=== PATIENT | male | born 1945 | race Caucasian/White ===

== ENCOUNTER 2019-08-20 09:42 | Day surgery (SDC) ==
[2019-08-13 10:39] LABS: URINE SOURCE CLEAN CATCH
[2019-08-13 10:41] LABS: BASO# 0.07 X1000 (0.0-0.2); BASO% 1.1 % (0.0-0.8); EOS# 0.25 X1000 (0.0-0.7); HEMATOCRIT 49.4 % (42.0-52.0); HEMOGLOBIN 16.3 g/dL (14.0-18.0); IMM GRAN# 0.02 X1000 (0.0-0.04); IMM GRAN% 0.3 % (0.0-0.5); LYMPH# 2.13 X1000 (1.2-3.4); LYMPH% 33.7 % (20.5-51.1); MCH 30.3 PG (27-31); MCV 91.8 FL (81-99); MONO# 0.56 X1000 (0.11-0.59); MONO% 8.9 % (1.7-9.3); MPV 9.6 FL (7.4-10.4); NEUT# 3.29 X1000 (1.4-6.5); PLT 229 X1000 (130-400); RBC 5.38 XMIL (4.7-6.1); WBC 6.32 X1000 (4.8-10.8)
[2019-08-13 10:46] LABS: BILIRUBIN URINE NEGATIVE (NEGATIVE); BLOOD URINE NEGATIVE (NEGATIVE); COLOR YELLOW; GLUCOSE URINE NEGATIVE (NEGATIVE); KETONE URINE NEGATIVE (NEGATIVE); LEUKOCYTES URINE NEGATIVE (NEGATIVE); NITRITE URINE NEGATIVE (NEGATIVE); PROTEIN URINE NEGATIVE (NEGATIVE); SP GRAVITY URINE 1.024; TURBIDITY URINE CLEAR (CLEAR); UROBILINOGEN URINE NORMAL (NORMAL)
[2019-08-13 10:47] LABS: UR EPITHELIAL CELLS <10 /HPF (<10); URINE BACTERIA NEGATIVE /HPF; URINE RBC <10 /HPF (<10); URINE WBC <10 /HPF (<10)
[2019-08-13 10:50] LABS: INR 0.96; PROTIME 12.9 Seconds (11.0-16.0)
[2019-08-13 10:57] LABS: HEMOGLOBIN A1C 6.2 % (4.8-6.0)
[2019-08-13 11:17] LABS: CALCIUM 9.3 mg/dL (8.8-10.2); CREATININE 1.3 mg/dL (0.7-1.2); POTASSIUM 4.3 mmol/L (3.5-5.1)
[2019-08-20] MEDS ORDERED: COLACE ONE (10:08)
[2019-08-20] MEDS ORDERED: REGLAN ONE (10:08)
[2019-08-20] MEDS ORDERED: PEPCID ONE (10:08)
[2019-08-20] MEDS ORDERED: CELEBREX ONE (10:09)
[2019-08-20] MEDS ORDERED: LYRICA ONE (10:09)
[2019-08-20] MEDS ORDERED: KEFZOL 1 GM/D5W 2 GM/100 ML IVPB ONE (10:09)
[2019-08-20] MEDS ORDERED: LR 1,000 ML ONE (10:09)
[2019-08-20] MEDS ORDERED: VERSED ONE ×2 (11:02→11:52)
[2019-08-20] MEDS ORDERED: FENTANYL ONE (11:03)
[2019-08-20] MEDS ORDERED: DIPRIVAN 1% ONE ×2 (11:03→13:06)
[2019-08-20] MEDS ORDERED: VANCOMYCIN ONE (11:43)
[2019-08-20] MEDS ORDERED: DURAMORPH ONE (11:43)
[2019-08-20] MEDS ORDERED: TORADOL ONE (11:43)
[2019-08-20] MEDS ORDERED: MARCAINE 0.25% PF ONE (11:43)
[2019-08-20] MEDS ORDERED: EXPAREL 1.3% ONE (11:44)
[2019-08-20] MEDS ORDERED: SODIUM CHLORIDE 0.9% ONE (11:44)
[2019-08-20] MEDS: CYKLOKAPRON 1,000 MG/NS 2,000 MG/200 ML IVPB ONE ×2 (12:12→13:20)
[2019-08-20] MEDS ORDERED: OFIRMEV 1000 MG/ISOTONIC SOLN 1,000 MG/100 ML BOTTLE ONE (12:36)
[2019-08-20] MEDS ORDERED: ZOFRAN ONE (12:36)
[2019-08-20] MEDS ORDERED: DECADRON ONE (12:36)
[2019-08-20 14:13] LABS: URINE SOURCE CATH
[2019-08-20] MEDS ORDERED: NS 1,000 ML ONE (14:16)
[2019-08-20 14:18] LABS: BILIRUBIN URINE NEGATIVE (NEGATIVE); BLOOD URINE NEGATIVE (NEGATIVE); COLOR YELLOW; GLUCOSE URINE NEGATIVE (NEGATIVE); KETONE URINE NEGATIVE (NEGATIVE); LEUKOCYTES URINE NEGATIVE (NEGATIVE); NITRITE URINE NEGATIVE (NEGATIVE); PH URINE 5.5; PROTEIN URINE NEGATIVE (NEGATIVE); SP GRAVITY URINE 1.021; TURBIDITY URINE CLEAR (CLEAR); UROBILINOGEN URINE NORMAL (NORMAL)
[2019-08-20 14:19] LABS: UR EPITHELIAL CELLS <10 /HPF (<10); URINE BACTERIA NEGATIVE /HPF; URINE RBC <10 /HPF (<10); URINE WBC <10 /HPF (<10)
--- NOTE | 2019-08-20 14:22 | Diag Imaging Result Doc PS360 ---
KNEE 1-2 VIEWS-RIGHT - 08/20/2019 INDICATION: R TKA TECHNIQUE: Two views COMPARISON: None FINDINGS: There has been right total knee arthroplasty with patellar resurfacing. Alignment is anatomic. No hardware fracture or loosening. IMPRESSION: No complication. Electronically signed by Kojo Saldivar 08/20/2019 2:19 PM
[2019-08-20] MEDS ORDERED: MORPHINE IV PRN ×3 (15:00)
[2019-08-20] MEDS ORDERED: ZOFRAN ODT PO PRN (15:00)
[2019-08-20] MEDS ORDERED: OXY IR PO PRN (15:00)
[2019-08-20] MEDS ORDERED: ZOFRAN IV PRN (15:00)
[2019-08-20] MEDS: ULTRAM PO SCH ×2 (16:23→21:37)
[2019-08-20] MEDS: NS 1,000 ML IV SCH (16:25)
[2019-08-20] MEDS: OXY IR PO PRN (17:58)
--- NOTE | 2019-08-20 19:26 | OPERATIVE NOTE ---
PROCEDURE DATE: 08/20/2019 PREOPERATIVE DIAGNOSIS: Degenerative joint disease, right knee. POSTOPERATIVE DIAGNOSIS: Degenerative joint disease, right knee. PROCEDURE: Right total knee replacement. SURGEON: Rj Redmond MD LEGAL SERVICES MANAGER: JACINTO Gongora. Mr. Hicks was necessary for proper retraction and manipulation of the leg during the case. ANESTHESIA: Spinal. COMPLICATIONS: None. PROCEDURE IN DETAIL: This 73-year-old male presents for right total knee replacement. Risks, benefits, and no guarantees were discussed and he was willing to proceed. He was taken to the operating room and satisfactory anesthesia obtained. The right leg was prepped and draped in the usual sterile fashion. A time-out was taken to confirm operative site, procedure and patient. The leg was wrapped with an Esmarch and tourniquet inflated to 300 mmHg. A midline incision was made over the right knee followed by quadriceps tendon-sparing arthrotomy. The patella was everted and resurfaced with freehand technique. With the patella subluxed laterally, the knee was flexed. An intramedullary hole was made in the distal femur and the distal femoral cutting block secured in 5 degrees of valgus. Distal femoral resection was made and a +10 resection due to a small flexion contracture. Distal femur was sized to a [employer] size 6 femoral implant. The 4-in-1 block was secured and the anterior, posterior and chamfer cuts sequentially made. Afterwards a notch was created for posterior stabilized design using the provided notch guide. Any remaining osteophytes were debrided from the femur. With the PCL retractor behind the tibia and the knee flexed, the tibial cutting block was secured with extramedullary alignment. Tibial resection was made, with care taken to preserve collateral ligaments and avoid any injury to the posterior neurovascular bundle. Any remaining osteophytes were debrided from the tibia. The tibia was sized to a size 7 tibial tray. A trial reduction was performed with a 7 mm spacer, with good range of motion and stability of the collateral ligaments. The patella was sized to a 38 medialized dome patella and the drill holes placed for the patellar implant and the femoral implant. The trial components were removed and the bony surfaces thoroughly irrigated with pulsatile lavage. Cement with 1 g vancomycin was utilized to cement a size 7 tibial base plate for rotating platform design, a 6 posterior stabilized standard-width right femoral component and a 38 medialized dome patella. After curing of the cement, a 7 mm posterior stabilized polyethylene bearing was placed into the tibial tray and the knee reduced. Final range of motion was 0 to 130 degrees with midline patellar tracking and excellent soft tissue balance. The arthrotomy was then copiously irrigated with irrigant. It was then closed over the drain with #1 Vicryl in the arthrotomy, 2-0 Vicryl in the subcutaneous and skin eboni. Sterile dressings completed the closure, and the patient was recovered from anesthesia and transferred to the recovery room in stable condition. No intraoperative complications were noted. Instrument count and sponge count were correct at the time of closure. cc: Rj Redmond MD
[2019-08-20] MEDS: KEFZOL 2 GM/D5W 2 GM/50 ML IVPB IV SCH (19:45)
--- NOTE | 2019-08-20 19:53 | ORTHOPAEDICS PROGRESS NOTE ---
DATE: 08/20/2019 Mr. Juarez is seen status post total knee replacement. At the present time, he is afebrile with stable vital signs. His bandage is clean and dry. He has minimal discomfort. Currently he is doing well. There is good active range of motion of the quadriceps and hamstring as well as the ankle. We will plan on mobilizing him and discharging him home when he is medically stable and ready ago. cc: Rj Redmond MD
[2019-08-20] MEDS: CELEBREX PO SCH (21:37)
[2019-08-20] MEDS: PERIDEX MT SCH (21:37)
[2019-08-20] MEDS: COLACE PO SCH (21:37)
[2019-08-20] MEDS: FLOMAX PO SCH (21:37)
[2019-08-20] MEDS: TYLENOL PO SCH (21:38)
[2019-08-21] MEDS: OXY IR PO PRN ×3 (00:25→13:00)
[2019-08-21] MEDS: ULTRAM PO SCH ×2 (03:47→09:29)
[2019-08-21] MEDS: KEFZOL 2 GM/D5W 2 GM/50 ML IVPB IV SCH (03:47)
[2019-08-21] MEDS: TYLENOL PO SCH ×2 (03:47→09:29)
[2019-08-21] MEDS: NS 1,000 ML IV SCH (06:35)
[2019-08-21] MEDS ORDERED: PRILOSEC PO SCH (07:00)
[2019-08-21 07:16] LABS: HEMATOCRIT 39.8 % (42.0-52.0); HEMOGLOBIN 13.5 g/dL (14.0-18.0)
[2019-08-21 07:39] VITALS: BP 144/74
[2019-08-21 07:42] LABS: CALCIUM 8.9 mg/dL (8.8-10.2); CREATININE 1.2 mg/dL (0.7-1.2); POTASSIUM 4.7 mmol/L (3.5-5.1)
[2019-08-21] MEDS ORDERED: ASPIRIN EC PO SCH (09:00)
[2019-08-21] MEDS ORDERED: ASPIRIN PO SCH (09:00)
[2019-08-21] MEDS ORDERED: LIPITOR PO SCH (09:00)
[2019-08-21] MEDS ORDERED: PEPCID PO SCH (09:00)
[2019-08-21] MEDS ORDERED: PROSCAR PO SCH (09:00)
[2019-08-21] MEDS: FLOMAX PO SCH (09:28)
[2019-08-21] MEDS: CELEBREX PO SCH (09:29)
[2019-08-21] MEDS: PERIDEX MT SCH (09:29)
[2019-08-21] MEDS: COLACE PO SCH (09:29)
--- NOTE | 2019-08-21 12:12 | ORTHOPAEDICS PROGRESS NOTE ---
DATE: 08/21/2019 Mr. Juarez is seen status post total knee replacement. He is afebrile with stable vital signs. We will plan on mobilizing him today, and he can be discharged home with home therapy. We will see him back in roughly 10 days time for followup. He is on his usual medicines including [place] 10 as needed for pain, ibuprofen 600 mg for pain, aspirin 325 mg for DVT prophylaxis, and Bactrim for antibacterial prophylaxis. We will see him back in roughly 10 days or sooner for any worsening signs or symptoms. cc: Rj Redmond MD
== END 2019-08-21 13:51 | disposition home or self-care (01) ==
LOC: PAT 09:42 → OPS 09:42 → 4N 09:42 → OPS 08-21 13:51
PROVIDERS: ATTEND Orthopaedic Surgery Adult Reconstructive Orthopaedic Surgery